=== PATIENT | male | born 1960 | race Caucasian/White ===

== ENCOUNTER 2018-03-05 16:38 | Inpatient (IN) | payer MEDICARE ==
[~2018-03-05] VITALS: Ht 175.2 cm
--- NOTE | ~2018-03-05 | EKG ---
[place], [place] ELECTROCARDIOGRAM REPORT NAME: MARCO ALANIS UNIT #: [id number] ROOM: 416 DOCTOR: ATIF DRAFT REPORT BIRTHDATE: [birth year] 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
--- NOTE | ~2018-03-05 | PR ---
[place], [place] PROGRESS NOTE NAME: MARCO ALANIS UNIT #: [id number] ROOM: 410 DOCTOR: SHERLYN REY MDKRISHNA BIRTHDATE: [birth year] DOS: 03/10/2018 SUBJECTIVE: The patient independently seen and examined, vpue-fi-fera encounter, history was confirmed. Physical examination performed. Labs reviewed. Labs reviewed. Assessment and management personally completed. Note done by the medical appliance maker approved. Bronchoscopy done yesterday with significant resolution improvement in symptoms of wheezing, coughing, and shortness of breath has been noted. Denies symptoms of chest pain or hemoptysis. The patient has been noted sitting on the chair this morning, was expecting possible home discharge because improvement in respiratory symptoms. OBJECTIVE: VITAL SIGNS: Normal temperature, respiratory rate 22, heart rate 102, blood pressure 130/74, pulse ox saturation on 2 liters nasal cannula 96% saturation. HEENT: Head was atraumatic. Eyes nonicterus. NECK: Supple. CARDIOVASCULAR: S1, S2 audible. LUNGS: Without any crackles. Occasional wheezing. ABDOMEN: Soft and nontender. EXTREMITIES: Without any acute edema. LABORATORY DATA: Culture of the bronchial washing shows heavy growth of yeast as the preliminary results. Final culture results pending. Gram stain, many white blood cells, few epithelial cells, few budding yeast, rare gram-positive cocci in pairs and gram-positive bacilli. IMPRESSION: 1. The patient with acute exacerbation of chronic obstructive pulmonary disease, ebfmu-kc-[id number] hypercapnic hypoxic respiratory failure. 2. Pulmonary nodules with suspected pulmonary infection and pneumonia. PLAN OF TREATMENT: The patient could be discharged home on oral Ceftin 500 mg p.o. b.i.d. Culture will be monitored. Tapering dose of prednisone. Abstinence tobacco recommended. Continue the use of home oxygen, which has been already done by the patient at 3 LPM of oxygen continuous use. Outpatient followup post-discharge recommended to have a repeat CT scan of chest done for assessment and documentation resolution of pulmonary nodules, otherwise additional assessment might be needed. Discharge planning was discussed with the patient's attending Alison Mcgee. [place], [place] PROGRESS NOTE NAME: MARCO ALANIS UNIT #: [id number] ROOM: 410 DOCTOR: KRISHNA CHO MD BIRTHDATE: [birth year] KRISHNA PLATA MD CM:PNTRANS [id number] KRISHNA REY MD 03/19/18 0917 interface
--- NOTE | ~2018-03-05 | EKG ---
[place], [place] ELECTROCARDIOGRAM REPORT NAME: MARCO ALANIS UNIT #: [id number] ROOM: 410 DOCTOR: ATIF DRAFT REPORT BIRTHDATE: [birth year] 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
--- NOTE | ~2018-03-05 | PROC NOTE ---
[place], [place] PROCEDURE NOTE NAME: MARCO ALANIS [facility] #: [id number] UNIT #: [id number] ROOM: 410 DOCTOR: SHERLYN REY MD,KRISHNA BIRTHDATE: [birth year] DOS: 03/09/2018 BRONCHOSCOPY NOTE PREOPERATIVE DIAGNOSES: The assessment of current nonproductive cough, pulmonary nodules. POSTOPERATIVE DIAGNOSES: Removal of multiple plugs and mucus in bronchial tree bilaterally. FINDINGS: Acute tracheobronchitis. Evidence of irregularity of mucosa was noted. Questionable lesion in the left lower lobe bronchus at the beginning of the left lingular opening and left upper lobe opening. The biopsies were done. BAL specimen in addition was also obtained for the patient from the left upper lobe. COMPLICATIONS: None. PROCEDURE DESCRIPTION: Informed consent obtained from the patient. The patient brought to the OR and placed in supine position. Conscious sedation administered by the Anesthesia Department. After achieving proper sedation, airway introduced into the mouth. Bronchoscope advanced to the airway into laryngeal area. Epiglottis were seen. Vocal were noted yellowish in color moving with symmetrical movements. Bronchoscope advanced to the vocal cord into tracheal lumen. The tracheal lumen noted with copious amount of thick purulent secretion, which was greenish in color, suctioned out at pranay level. Similar secretion present in endobronchial tree bilaterally. Moderate amount to remove with the help of normal saline wash without any difficulty. The patient noted irregular mucosa and questionable lesion in the endobronchial tree in the left main stem bronchus. The bronchial biopsies were taken. In addition, BAL specimen was obtained from the left upper lobe subsegment as well. Procedure was tolerated by the patient on complications. There was no significant bleeding noted. Postoperative findings were discussed with patient's spouse and other family members. KRISHNA PLATA MD CM:PROCNOTE:PROCEDURE NOTE 1143 [id number] KRISHNA REY MD
--- NOTE | ~2018-03-05 | PR ---
[place], [place] PROGRESS NOTE NAME: MARCO ALANIS [facility] #: [id number] UNIT #: [id number] ROOM: 410 DOCTOR: TESSA HALL DO BIRTHDATE: [birth year] DOS: 03/10/2018 SUBJECTIVE: The patient was seen and evaluated today. He had bronchoscopy performed yesterday. He states that his breathing is much improved since yesterday. He has a mild cough. He denies any lightheadedness, headaches, diplopia, hemoptysis, hematemesis or hematochezia. He states that he feels ready to go home, so that he can rest. OBJECTIVE: VITAL SIGNS: Temperature 98.5, heart rate 92, respirations 22, blood pressure 140/66, pulse ox 96% on 2-3 liters by nasal cannula. HEENT: Head is atraumatic. Eyes nonicteric. NECK: Supple. CARDIOVASCULAR: S1, S2 audible. LUNGS: Mildly decreased breath sounds with expiratory wheezing. ABDOMEN: Soft, nontender, nondistended. Bowel sounds present. EXTREMITIES: No edema. SKIN: Visible skin, no lesions or rashes. CENTRAL NERVOUS SYSTEM: Cranial nerves 2-12 grossly intact. MUSCULOSKELETAL: No acute deformities. LABORATORY DATA: CBC today shows white blood cells 8.0, hemoglobin 13.8, hematocrit 43.2, platelet count 399,000. CMP today, sodium 138, potassium 4.0, chloride 94, CO2 of 39, BUN 18, creatinine 0.96, glucose 252. AST 25, ALT 94, alkaline phosphatase 77. Albumin 3.1. Bronchial washings showed neutrophil predominant infiltrate. Gram stain of bronchial washing shows many white blood cells, few epithelial cells, few budding yeast, rare gram-positive cocci in pairs, and rare gram-positive bacilli. Results of culture from the bronchial washings is growing heavy yeast. Otherwise, normal sulaiman. Sputum Gram stain shows many white blood cells, few gram-positive cocci in pairs and few gram-positive bacilli. Culture of the sputum is normal sulaiman also with yeast. Blood cultures are negative. ASSESSMENT: 1. Acute exacerbation of chronic obstructive pulmonary disease. 2. Acute on chronic hypercapnic hypoxic respiratory failure. 3. Tracheobronchitis. PLAN OF TREATMENT: The patient will be discharged from a respiratory standpoint on Ceftin 500 b.i.d., continue to refrain from smoking. He may follow up as an outpatient as needed. Tessa Hall DO [place], [place] PROGRESS NOTE NAME: MARCO ALANIS [place] UNIT #: [id number] ROOM: 410 DOCTOR: TESSA HALL DO BIRTHDATE: [birth year] KRISHNA PLATA MD CM:PNARUN [id number] TESSA HALL DO 03/11/18 0412 interface
--- NOTE | ~2018-03-05 | PR ---
[place], [place] PROGRESS NOTE NAME: MARCO ALANIS UNIT #: [id number] ROOM: 416 DOCTOR: KRISHNA CHO MD BIRTHDATE: [birth year] DOS: 03/07/2018 PULMONARY PROGRESS NOTE SUBJECTIVE: The patient was noted sitting on the chair this morning of assessment. The cough has been noted small amount of sputum expectoration, shortness of breath and wheezing were noted, partially decreased. Denies symptoms of chest pain or hemoptysis. OBJECTIVE: VITAL SIGNS: Normal temperature, respiratory rate 20, heart rate 114-97, blood pressure 128/70-138/82. Pulse oxygen saturation on 3 liters nasal cannula 100%, BiPAP 40%, 99% saturation of oxygen recorded. HEENT: Head was atraumatic. Eyes nonicterus. NECK: Supple. CARDIOVASCULAR: S1, S2 is audible. LUNGS: Noted moderate decreased breaths in the lungs bilaterally with expiratory wheezing. No crackles. ABDOMEN: Soft, nontender. EXTREMITIES: No acute edema. LABORATORY DATA: Culture of the sputum from noted normal sulaiman, final culture results were pending. Blood culture from the both sets were noted negative for any bacterial growth. BMP today, glucose 306 and BUN 28. IMPRESSION: 1. The patient who has been currently noted with an ongoing acute on chronic hypoxic and hypercapnic respiratory failure. 2. The patient with acute tracheobronchitis. 3. Acute exacerbation of chronic obstructive pulmonary disease. 4. Bilateral pulmonary nodules, suspected for infection and other etiologies. PLAN OF TREATMENT: Continuation of current plan of management, oxygen supplementation, bronchodilators and the BiPAP use. The dose of Solu-Medrol will be decreased to 40 mg rather every 8 hours since the patient's respiratory symptoms have been decreasing. Bronchoscopy planned to be done on Friday. [place], [place] PROGRESS NOTE NAME: MARCO ALANIS UNIT #: [id number] ROOM: 416 DOCTOR: KRISHNA CHO MD BIRTHDATE: [birth year] KRISHNA PLATA MD CM:PNTRANS [phone] [id number] KRISHNA REY MD 03/07/185 interface
--- NOTE | ~2018-03-05 | PR ---
[place], [place] PROGRESS NOTE NAME: MARCO ALANIS UNIT #: [id number] ROOM: 416 DOCTOR: KRISHNA CHO MD BIRTHDATE: [birth year] DOS: 03/08/2018 SUBJECTIVE: The patient was noted comfortable at this time, resting in the bed. Has not been noted any acute new respiratory complaints at this time. Reported partial reduction in the respiratory symptom, coughing, shortness breath and wheezing in the last 24 hours. OBJECTIVE: VITAL SIGNS: This morning, normal temperature, respiratory rate 22, heart rate of 107, blood pressure 136/94. Pulse oxygen saturation on 4 liters nasal cannula 100% saturation. HEENT: Examination shows head was atraumatic. Eyes nonicterus. NECK: Supple. CARDIOVASCULAR: S1, S2 audible. LUNGS: Noted without any wheezing or crackles at the present time. Breaths are noted generally diminished bilaterally. ABDOMEN: Soft, nontender. Bowel sounds are present. EXTREMITIES: Without any acute edema. LABORATORY DATA: BMP today, BUN 25, creatinine was normal. CO2 of 33. Culture of the sputum noted moderate growth of yeast. IMPRESSION: The patient was currently noted with: 1. Acute on chronic hypercapnic and hypoxic respiratory failure, responding to treatment. 2. Acute bronchitis. 3. Pulmonary nodules. 4. Exacerbation of chronic obstructive pulmonary disease. PLAN OF MANAGEMENT: Continuation of the current plan of management with bronchodilators and oxygen supplement. Decrease the Solu-Medrol dose to 40 mg b.i.d. dosing. Proceed with bronchoscopy that was planned to be done tomorrow morning. [place], [place] PROGRESS NOTE NAME: MARCO ALANIS UNIT #: [id number] ROOM: 416 DOCTOR: KRISHNA CHO MD BIRTHDATE: [birth year] KRISHNA PLATA MD CM:PNTRANS [id number] KRISHNA REY MD 03/08/18 1628 interface
--- NOTE | ~2018-03-05 | PR ---
[place], [place] PROGRESS NOTE [id number] UNIT #: [id number] ROOM: 410 DOCTOR: KRISHNA CHO MD BIRTHDATE: [birth year] DOS: 03/09/2018 PULMONARY PROGRESS NOTE SUBJECTIVE: The patient was noted planned for bronchoscopy. The cough has been noted intermittently with minimal sputum expectoration. Denies symptoms of chest pain or hemoptysis. Shortness of breath was still noted with exertion partial reduction was noted. The wheezing was gradually subsiding. Denies any nausea, vomiting, diarrhea, abdominal pain, dysuria or hematuria. Denies symptoms of headache or diplopia. No joint pain. Remaining systems were reviewed. They were noted all negative. OBJECTIVE: VITAL SIGNS: Shows a normal temperature, respiratory rate of 20-26. Heart rate of 109-95, monitor sinus tachycardia. Blood pressure 135/77 and 148/72. Pulse oxygen saturation recorded as 98% with the BiPAP and 4 liters nasal cannula 95% saturation. HEENT: Examination shows head was atraumatic. Eyes nonicterus. NECK: Supple. CARDIOVASCULAR: S1, S2 audible. LUNGS: The patient was noted with moderate decreased breath sounds, expiratory wheezing without any crackles. ABDOMEN: Soft, nontender. Bowel sounds present. EXTREMITIES: No new changes. VISIBLE SKIN: No lesions or rashes. CENTRAL NERVOUS SYSTEM: Cranial nerves 2-12 intact. MUSCULOSKELETAL: Without any acute deformities. LABORATORY DATA: The culture of the sputum spontaneous and noted no bacterial growth yesterday. The BMP was done this morning shows glucose 160, BUN and creatinine was normal. IMPRESSION: The patient with pulmonary nodular opacities in the lungs. The patient's preop bronchoscopy shows acute exacerbation of chronic obstructive pulmonary disease, jidgg-em-sksbfji hypercapnic hypoxic respiratory failure, and persistent symptoms of nonproductive cough. PLAN OF TREATMENT: Continue the current plan of management. The patient corticosteroids, bronchodilator therapy. Bronchodilators administration. After the bronchoscopy if any modification in treatment necessary will be done accordingly. Continue other supportive therapy, plan of management, care plan and therapy per usual care. [place], [place] PROGRESS NOTE [facility]: [id number] UNIT #: [id number] ROOM: 410 DOCTOR: KRISHNA CHO MD BIRTHDATE: [birth year] KRISHNA PLATA MD CM:FEMI [id number] 1530 KRISHNA REY MD 03/09/18 1528 interface
--- NOTE | ~2018-03-05 | CON ---
[place], [place] REPORT OF CONSULTATION NAME: MARCO ALANIS [facility] #: [id number] UNIT #: [id number] ROOM: 416 DOCTOR: SHERLYN REY MDKRISHNA BIRTHDATE: [birth year] DOS: 03/06/2018 PULMONARY CONSULTATION AND EVALUATION REASON FOR CONSULTATION: Assessment for respiratory failure as well as exacerbation of COPD. HISTORY OF PRESENT ILLNESS: The patient was independently seen and examined, rknv-rg-vwin encounter. History was confirmed from the patient personally. Medical records were reviewed. Assessment and management personally completed today's note and all the necessary orders were instituted. This is a 57-year-old male who has been known with past history of COPD, has been assessed and treated by me in 2016. The patient presented to hospital. The patient has been noticed with symptoms of getting increased shortness of breath ongoing for the past few days. The symptoms have been noted with gradual worsening. The symptoms was associated with cough with sputum expectoration intermittently, dark yellowish color. The patient denies symptoms of hemoptysis with that. He denies any symptoms of chest pain. ____ symptoms of wheezing. He has been noted with oxygen desaturation. ____ Emergency Room. The patient has been currently admitted to hospital and managed for the treatment for acute respiratory failure and exacerbation of COPD. REVIEW OF SYSTEMS: Already completed by the medical surgical tech. PAST MEDICAL HISTORY: 1. Known with history of COPD. 2. Chronic hypoxic respiratory failure, use of oxygen supplementation 2 liter nasal cannula. 3. Nicotine dependent. 4. Essential hypertension. 5. Osteoarthritis. 6. Type 2 diabetes mellitus. 7. Anxiety disorder and depression. PAST SURGICAL HISTORY: 1. Noted removal of cyst from the right chest wall that was benign. 2. Surgery for the toenail. 3. Fibrobronchoscopy in 2016 as a therapeutic bronchoscopy. SOCIAL HISTORY: The patient is , lives at home, has 2 children. Smoking noted since the early teens up to 2 packs of cigarettes per day. Currently decreased the tobacco use, smoking quarter pack of cigarettes per day. He has worked for 24 years in the [employer]. FAMILY HISTORY: The patient was noted for hypertension in parents. CURRENT MEDICATIONS: Administered for this hospitalization, use of Lovenox for DVT prophylaxis, Solu-Medrol 60 mg q.8 hours, DuoNeb q.4 hours, IV Rocephin, Zithromax, and other p.r.n. medications. [place], [place] REPORT OF CONSULTATION [id number] UNIT #: [id number] ROOM: 416 DOCTOR: SHERLYN REY MD,KRISHNA BIRTHDATE: [birth year] DRUG ALLERGIES: Noted with no known drug allergies. PHYSICAL EXAMINATION: GENERAL: This is a 57-year-old white male, appeared to be significantly malnourished, cachectic for his age. Height of 5 feet 9 inches, weight 164 pounds. VITAL SIGNS: Normal temperature, respiratory rate 22-24, heart rate of 117-129, sinus tachycardia, blood pressure 131/67-98/64. Pulse oxygen saturation noted as 99% saturation. HEENT: Examination shows head was atraumatic. Eyes, nonicterus. NECK: Supple. CARDIOVASCULAR: S1, S2 audible. LUNGS: Noted with diffuse reduction in breath sounds with expiratory wheezing in the lungs, which are noted [id number] at the present time. ABDOMEN: Flat, soft, nontender. EXTREMITIES: Without any acute edema. Loss of muscle mass. There was no cyanosis. VISIBLE SKIN: No lesions or rashes. CENTRAL NERVOUS SYSTEM: Nonfocal. MUSCULOSKELETAL: No deformities. LABORATORY DATA: Lactic acid 1.8 yesterday on admission. CMP, glucose 171, BUN and creatinine was normal, and remaining electrolytes grossly normal. CBC yesterday on admission, normal hemoglobin and hematocrit, MCV of 100.9. Arterial blood gas, pH of 7.25, pCO2 of 59, pO2 of 129. The troponin cycled yesterday noted normal. D-dimer 2.97 that was a noted mildly elevated at midnight. The PT and PTT as normal. CBC repeated this morning essentially remains as normal. Sputum for Gram-stain culture, many white blood cell, few gram-positive cocci in pairs, and few gram-positive bacilli. The chest x-ray showed changes of COPD and hyperinflation were personal review. CTA of the chest was also reviewed for this hospitalization was noted without any evidence of significant lymphadenopathy. Centrilobular changes are noted in the upper portion of the lung consistent with history of tobacco use. It shows variable, which is cluster of the nodule was noted in the upper lung mostly in the upper two-thirds. The index nodule noted right upper lobe at 7 mm in size. The nodule appeared to be somewhat in the peripheral distribution. IMPRESSION: 1. The patient who has been currently admitted to the hospital for recurrent progressive acute respiratory symptoms noted with chronic hypercapnic and hypoxic respiratory failure. 2. Acute severe exacerbation of chronic obstructive pulmonary disease as well. 3. Finding of protein-calorie malnutrition. 4. Current pulmonary nodule, differential diagnosis of chronic hypersensitivity pneumonitis, sarcoidosis, malignancy, or chronic infection such as Mycobacterium avium complex, infection would be considered differential diagnosis. PLAN OF MANAGEMENT: The patient will be continued on current dose of corticosteroids. Reduction in the dose will be started based on the progression [place], [place] REPORT OF CONSULTATION NAME: MARCO ALANIS UNIT #: [id number] ROOM: [facility] DOCTOR: SHERLYN REY MD,KRISHNA BIRTHDATE: [birth year] of his illness. Additional treatment changes will be ordered based on the progression. The sputum for Gram-stain culture was already sent. Monitor culture results. Bronchoscopy done for the reason of getting more accurate culture identification from the lung, especially for atypical mycobacterial infection and other etiologies. Use of the BiPAP will be considered with intermittent ____ with current setting to be continued 26/05, which were noted effective. Other arterial blood gas will be obtained to assess improvement in the ventilatory status. Usual care, other supportive therapy, plan of management and care plan. Nicotine replacement patches to overcome nicotine withdrawal. Other supportive therapy, plan, and management changes to be continued as well. Prealbumin level was ordered. Thanks for allowing me to participate in the care of this patient. KRISHNA PLATA MD CM:CONSTR:REPORT OF CONSULTATION 1326 03/06/18 2134 interface
--- NOTE | ~2018-03-05 | CON ---
[place], [place] REPORT OF CONSULTATION NAME: MARCO ALANIS [facility] #: [id number] UNIT #: [id number] ROOM: 416 DOCTOR: TESSA HALL DO BIRTHDATE: [birth year] DOS: 03/06/2018 REQUESTING PHYSICIAN: Hospitalist Service. REASON FOR CONSULTATION: COPD exacerbation and acute on chronic respiratory failure. HISTORY OF PRESENT ILLNESS: The patient presented to [facility] with complaints of increasing shortness of breath. He notes worsening of his symptoms over the past 2-3 days. He does have a productive cough with sputum that is greenish yellow. He also had fevers, chills and sweats at home. He does have chest tightness due to the cough. He has been wearing BiPAP overnight. He states that the tightness in his chest is better. He also states that he is less short of breath today. He states that he does not smoke much anymore. He admits that the most he has been smoking is 5 cigarettes per day. He is on 2 liters of oxygen at home. He did not increase this before coming to the hospital. Upon arrival to the Emergency Room, he was satting 85% on 3 liters. He denies any symptoms of lightheadedness, current fevers or chills, chest pain, abdominal pain, nausea, vomiting, diarrhea, hemoptysis, hematemesis or hematochezia. REVIEW OF SYSTEMS: CONSTITUTIONAL: Fatigue, fevers and chills. EYES: Denies burning, redness or tenderness. EARS, NOSE, THROAT: Admits to sore throat. Denies hoarseness, otalgia, postnasal drainage or epistaxis. CARDIOVASCULAR: Denies chest pain, edema or pain in the lower extremities. RESPIRATORY: Admits to shortness of breath and cough with sputum production. GASTROINTESTINAL: Denies dysphagia, nausea, vomiting, diarrhea, abdominal pain, hematemesis, melena or hematochezia. GENITOURINARY: No dysuria, no hematuria. MUSCULOSKELETAL: Denies any acute pain in the joints. SKIN: Denies any lesions or rashes. CENTRAL NERVOUS SYSTEM: Denies dizziness, headache, double vision, or syncopal episodes. PAST MEDICAL HISTORY: COPD, diabetes type 2, emphysema, hypercholesterolemia, hypertension, vitamin B12 deficiency, neuropathy, tobacco abuse, home oxygen dependent. PAST SURGICAL HISTORY: Bronchoscopy. SOCIAL HISTORY: The patient currently smokes maximum of 5 cigarettes per day. He does not use alcohol or illicit drugs. He is in the distant past. He is currently single with a girlfriend. He has 2 children. FAMILY HISTORY: His father is due to emphysema and COPD. His mother is also due to cancer. MEDICATIONS: He is currently receiving Solu-Medrol 60 mg q.8 hours, Rocephin, [place], [place] REPORT OF CONSULTATION [id number] #: [id number] ROOM: [facility] DOCTOR: TESSA HALL DO BIRTHDATE: [birth year] azithromycin, DuoNeb breathing treatments q.4 hours, Mucinex b.i.d. and other p.r.n. medications. He is prescribed Anoro, Lipitor, diltiazem, Neurontin, glipizide, lisinopril and metformin. DRUG ALLERGIES: He has no known drug allergies. PHYSICAL EXAMINATION: VITAL SIGNS: On admission, temperature 97.6, heart rate 120, respirations 22, blood pressure 136/89, 85% on 3 liters nasal cannula. Vitals this morning, temperature 97.6, heart rate 114, respirations 24, blood pressure 98/64, pulse ox 100% on 40% BiPAP. GENERAL: Breathing easily on BiPAP. Uncomfortable with the mask on. He is 5 feet 8.9 inches. No weight has been recorded HEENT: Head is atraumatic. Eyes nonicteric. NECK: Supple. CARDIOVASULAR: S1, S2 audible. LUNGS: Diffuse wheezing bilaterally. Diffuse crackles also noted. ABDOMEN: Soft, nontender, nondistended with bowel sounds present. CENTRAL NERVOUS SYSTEM: Cranial nerves 2 through 12 grossly intact. No gross focal deficit. MUSCULOSKELETAL: No acute deformities. VISIBLE SKIN: No lesions or rashes noted. LABORATORY DATA: CBC on admission 03/05/2018 shows white blood cells 9.0, hemoglobin 15, hematocrit 46.6, platelet count of 343,000. CBC today, white blood cells 5.3, hemoglobin 13.4, hematocrit 42.2, platelet count 302,000. CMP on admission 03/05/2018 shows sodium 134, potassium 4.7, chloride 96, CO2 of 25, BUN 15, creatinine 1.19. LFTs were normal. Albumin 3.6. Troponins were cycled and were negative. CMP today shows sodium 132, potassium 5.1, chloride 97, CO2 of 28, BUN 23, creatinine 1.13 and glucose 247. Vitamin D low at 7.1. Blood gas from admission, pH 7.255, pCO2 of 59, pO2 of 129, bicarbonate 25.5. CTA of the chest shows multifocal diffuse bilateral patchy airspace disease as well as multiple pulmonary nodules. The largest of these nodules is located in the right upper lobe and measures 7 mm. IMPRESSION: 1. Severe sepsis. 2. Acute on chronic respiratory failure with hypoxia and hypercapnia. 3. Pneumonitis, possible pneumonia. 4. Chronic obstructive pulmonary disease exacerbation. 5. Tachycardia relating to the underlying infection. 6. Tachypnea. 7. Respiratory acidosis. 8. Tobacco abuse. 9. Diabetes mellitus type 2 with hyperglycemia. 10. Neuropathy. 11. Emphysema. 12. Hypercholesterolemia. 13. Hypertension. 14. Hyponatremia. [place], [place] REPORT OF CONSULTATION NAME: MARCO ALANIS UNIT #: [id number] ROOM: [facility] DOCTOR: TESSA HALL DO BIRTHDATE: [birth year] 15. Home oxygen dependent. 16. Chronic respiratory failure. PLAN AND MANAGEMENT: Agree with current doses of steroids, bronchodilators and antibiotics. Due to the patchy airspace disease, the patient will be taken for a bronchoscopy on Friday to obtain cultures. Continue oxygen supplementation as needed. He may take breaks from BiPAP to eat. Changes in management will be based upon disease progression and results of cultures from bronchoalveolar lavage. Tessa Hall DO KRISHNA PLATA MD CM:CONSTR:REPORT OF CONSULTATION 1154 03/06/18 1239 interface
[~2018-03-05 16:38] MED LIST: ASPIR-LOW81 MG PO; CARDIZEM LA120 MG PO; CENTRUM1 TAB PO; CIALIS5 MG PO; EC NAPROSYN500 MG PO; GABAPENTIN300 M1 PO; GLIPIZIDE XL5 M1 PO; LEVAQUIN750 M1 PO; LIPITOR40 MG PO; LOPID600 M1 PO; LUNESTA2 MG PO; MUCINEX ER600 MG PO; Metformin Hydr500 MG PO; NASONEX0.05 MG/AC NS; NEURONTIN300 MG PO; PREDNISONE10 MG PO; PREDNISONE20 MG PO; PRINIVIL5 M1 PO; PRINIVIL5 MG PO; PROVENTIL0.09 MG/A1 IH; ROBITUSSIN AC 110 ML PO; SPIRIVA18 MCG PO; SYMBICORT1 AE1 IH; TRAD5TAB1 PO; TRAMADOL HCL50 MG PO; TRICOR145 MG PO; VICODIN 5/500 505 MG PO; VITAMIN B121000 MC1 PO; VITAMIN C1000 M5 PO; XANAX0.25 MG PO
[2018-03-05 17:15] LABS: HEMATOCRIT 46.6 % (42.0-52.0); MEAN CELL VOLUME 100.9 fl (80.0-94.0); MEAN CORPUSCULAR HGB 32.5 pg (27.0-31.0); MEAN CORPUSCULAR HGB CONC 32.2 g/dl (33.0-37.0); PLATELET COUNT AUTOMATED 343 10*3/uL (130-400); RED BLOOD COUNT 4.62 10*6/uL (4.50-5.90); RED CELL DISTRI WIDTH 12.9 % (0-14.5)
[2018-03-05 17:21] VITALS: BP 136/89
[2018-03-05 17:31] LABS: ALBUMIN 3.6 gm/dl (3.1-4.5); ALKALINE PHOSPHATASE 97 U/L (45-117); BUN 15 mg/dl (7-24); CHLORIDE 96 mmol/L (98-107); CREATININE 1.19 mg/dL (0.70-1.30); POTASSIUM 4.7 mmol/L (3.5-5.1); SGOT/AST 20 IU/L (3-35); SGPT/ALT 29 U/L (12-78); SODIUM 134 mmol/L (136-145); TOTAL PROTEIN 8.3 gm/dL (6.4-8.2)
[2018-03-05 17:33] LABS: TROPONIN I < 0.015 ng/ml (<0.045)
[2018-03-05 17:43] LABS: BASOPHILS 1 % (0-1); POLYCHROMASIA SLIGHT; TOTAL CELLS COUNTED 100 #CELLS
[2018-03-05 17:45] LABS: PLATELET SUFFICIENCY NORMAL (NORMAL)
[2018-03-05 17:48] LABS: ABG BASE EXCESS -2.7 mmol/L (-2.0-2.0); ABG HCO3 25.5 mmol/l (22-26); ABG O2 SATURATION 98.5 % (95-97); ARTERIAL BLOOD GAS PH 7.255 (7.35-7.45)
[2018-03-05 17:53] VITALS: BP 100/66
[2018-03-05 18:16] VITALS: BP 93/63
[2018-03-05 19:36] VITALS: BP 98/60
[2018-03-05 20:26] VITALS: BP 118/71
[2018-03-05 20:38] LABS: TROPONIN I < 0.015 ng/ml (<0.045)
[2018-03-05 21:30] VITALS: BP 131/67
[2018-03-06] VITALS: BP 105/80
[2018-03-06 06:21] LABS: ACT PARTIAL THROMBO TIME 31.6 SECONDS (20.8-31.5)
[2018-03-06 06:22] LABS: HEMATOCRIT 42.4 % (42.0-52.0); HEMOGLOBIN 13.4 g/dl (14.0-18.0); MEAN CELL VOLUME 102.2 fl (80.0-94.0); MEAN CORPUSCULAR HGB 32.3 pg (27.0-31.0); MEAN CORPUSCULAR HGB CONC 31.6 g/dl (33.0-37.0); MEAN PLATELET VOLUME 10.3 fl (9.6-12.3); PLATELET COUNT AUTOMATED 302 10*3/uL (130-400); RED BLOOD COUNT 4.15 10*6/uL (4.50-5.90); RED CELL DISTRI WIDTH 12.9 % (0-14.5); WHITE BLOOD COUNT 5.3 10*3/uL (4.8-10.8)
[2018-03-06 06:43] LABS: ALKALINE PHOSPHATASE 93 U/L (45-117); BUN 23 mg/dl (7-24); CHLORIDE 97 mmol/L (98-107); CREATININE 1.13 mg/dL (0.70-1.30); PHOSPHOROUS 3.2 mg/dL (2.5-4.9); POTASSIUM 5.1 mmol/L (3.5-5.1); SGOT/AST 31 IU/L (3-35); SGPT/ALT 37 U/L (12-78); SODIUM 132 mmol/L (136-145); TOTAL PROTEIN 7.1 gm/dL (6.4-8.2)
[2018-03-06 06:49] LABS: FREE T4 1.56 ng/dl (0.76-1.46); THYROID STIM HORMONE (HS) 0.185 uIU/ml (0.358-4.75)
[2018-03-06 07:05] LABS: TOTAL CELLS COUNTED 100 #CELLS
[2018-03-06 07:06] LABS: BURR CELLS FEW; PLATELET SUFFICIENCY NORMAL (NORMAL)
[2018-03-06 08:00] VITALS: BP 98/64
[2018-03-06 08:06] LABS: VITAMIN D, 25-HYDROXY 7.1 ng/mL (30-100)
[2018-03-06] MEDS ORDERED: CARTIA XT180 MG PO (10:14)
[2018-03-06] MEDS ORDERED: ALBUTEROL2.5 MG/0.5 INH (10:15)
[2018-03-06] MEDS ORDERED: ANORO ELLIPTA1 EACH INH (10:16)
[2018-03-06 12:00] VITALS: BP 124/74
[2018-03-06] MEDS ORDERED: SYMB160 INH (13:35)
[2018-03-06] MEDS ORDERED: PROVENTIL HFA6.7 GM INH (13:37)
[2018-03-06 13:51] LABS: ABG BASE EXCESS -0.7 mmol/L (-2.0-2.0); ABG HCO3 26.6 mmol/l (22-26); ABG O2 SATURATION 94.7 % (95-97); ARTERIAL BLOOD GAS PCO2 56.3 mmHg (35-45); ARTERIAL BLOOD GAS PH 7.293 (7.35-7.45); ARTERIAL BLOOD GAS PO2 72.6 mmHg (80-90)
[2018-03-06 16:00] VITALS: BP 131/72
[2018-03-06 20:00] VITALS: BP 138/82
[2018-03-07] VITALS: BP 128/70
[2018-03-07 05:53] LABS: BASO % 0.2 % (0.0-1.0); HEMATOCRIT 41.2 % (42.0-52.0); LYMPH # 0.4 10*3/uL (1.3-4.4); MEAN CELL VOLUME 102.5 fl (80.0-94.0); MEAN CORPUSCULAR HGB 32.3 pg (27.0-31.0); MEAN CORPUSCULAR HGB CONC 31.6 g/dl (33.0-37.0); MEAN PLATELET VOLUME 9.9 fl (9.6-12.3); MONO # 0.5 10*3/uL (0.1-1.0); MONO % 10.3 % (3.0-9.0); NEUT # 3.9 10*3/uL (2.3-7.9); NEUT % 81.1 % (47.0-73.0); PLATELET COUNT AUTOMATED 345 10*3/uL (130-400); RED BLOOD COUNT 4.02 10*6/uL (4.50-5.90); WHITE BLOOD COUNT 4.8 10*3/uL (4.8-10.8)
[2018-03-07 05:58] LABS: BUN 28 mg/dl (7-24); CHLORIDE 104 mmol/L (98-107); CREATININE 1.17 mg/dL (0.70-1.30); SODIUM 139 mmol/L (136-145)
[2018-03-07 06:02] LABS: PREALBUMIN 11 mg/dl (20-40)
[2018-03-07 12:00] VITALS: BP 131/80
[2018-03-07 16:00] VITALS: BP 130/62
[2018-03-07 20:00] VITALS: BP 127/63
[2018-03-08] VITALS: BP 136/94
[2018-03-08 07:37] LABS: CHLORIDE 103 mmol/L (98-107); POTASSIUM 4.1 mmol/L (3.5-5.1); SODIUM 141 mmol/L (136-145)
[2018-03-08 07:49] LABS: BUN 25 mg/dl (7-24)
[2018-03-08 12:00] VITALS: BP 135/77
[2018-03-08 16:00] VITALS: BP 134/60
[2018-03-08 20:00] VITALS: BP 132/69
[2018-03-09] VITALS (11 sets, daily range): BP systolic 122–158; BP diastolic 60–92
[2018-03-09 06:54] LABS: BUN 24 mg/dl (7-24); CHLORIDE 101 mmol/L (98-107); CREATININE 0.92 mg/dL (0.70-1.30); POTASSIUM 4.2 mmol/L (3.5-5.1); SODIUM 141 mmol/L (136-145)
[2018-03-09 10:33] LABS: BF LYMPHOCYTES 2 %; BF MACROPHAGES 3 %; BF NEUTROPHILS 95 %
[2018-03-10 00:18] VITALS: BP 138/74
[2018-03-10 06:18] LABS: HEMATOCRIT 43.2 % (42.0-52.0); HEMOGLOBIN 13.8 g/dl (14.0-18.0); MEAN CELL VOLUME 100.2 fl (80.0-94.0); MEAN CORPUSCULAR HGB CONC 31.9 g/dl (33.0-37.0); MEAN PLATELET VOLUME 9.7 fl (9.6-12.3); PLATELET COUNT AUTOMATED 399 10*3/uL (130-400); RED BLOOD COUNT 4.31 10*6/uL (4.50-5.90); RED CELL DISTRI WIDTH 12.3 % (0-14.5)
[2018-03-10 06:47] LABS: TOTAL CELLS COUNTED 100 #CELLS
[2018-03-10 06:48] LABS: PLATELET SUFFICIENCY NORMAL (NORMAL)
[2018-03-10 06:55] LABS: ALBUMIN 3.1 gm/dl (3.1-4.5); ALKALINE PHOSPHATASE 77 U/L (45-117); BUN 18 mg/dl (7-24); CHLORIDE 94 mmol/L (98-107); CREATININE 0.96 mg/dL (0.70-1.30); SGOT/AST 25 IU/L (3-35); SGPT/ALT 94 U/L (12-78); SODIUM 138 mmol/L (136-145); TOTAL PROTEIN 6.5 gm/dL (6.4-8.2)
[2018-03-10 07:50] VITALS: BP 140/66
[2018-03-10] MEDS ORDERED: AMINOPHYLLIN200 MG PO (09:34)
[2018-03-10 12:00] VITALS: BP 149/80
[2018-03-10] MEDS ORDERED: CEFUROXIME AXE250 MG PO (12:15)
[2018-03-10] MEDS ORDERED: DILTIAZEM CD240 MG PO (12:15)
[2018-03-10] MEDS ORDERED: MUCINEX ER600 MG PO (12:15)
[2018-03-10] MEDS ORDERED: VITAMIN D-32000 UNIT PO (12:17)
[2018-03-10] MEDS ORDERED: PREDNISONE10 MG PO (12:19)
[2018-03-10] MEDS ORDERED: LEVEMIR100 UNIT/1 SC (12:28)
[2018-03-10 15:07] LABS: ACID FAST SPEC PROCESSING Concentration (.)
== END 2018-03-10 13:35 | disposition home or self-care (01) | DRG 853 ==
LOC: ED 16:38 → 4E 18:17 → EDHOLD 18:17 → 4E 21:04
PROVIDERS: Internal Medicine; Internal Medicine Critical Care Medicine; Nurse Practitioner Family; Registered Nurse; Student in an Organized Health Care Education/Training Program
PROC: 5A09357 Assistance with Respiratory Ventilation, Less than 24 Consecutive Hours, Continuous Positive Airway Pressure (ICD-10-PCS; principal; 2018-03-05)
PROC: 5A09357 Assistance with Respiratory Ventilation, Less than 24 Consecutive Hours, Continuous Positive Airway Pressure (ICD-10-PCS; 2018-03-06)
PROC: 5A09357 Assistance with Respiratory Ventilation, Less than 24 Consecutive Hours, Continuous Positive Airway Pressure (ICD-10-PCS; 2018-03-07)
PROC: 0B9G8ZX Drainage of Left Upper Lung Lobe, Via Natural or Artificial Opening Endoscopic, Diagnostic (ICD-10-PCS; 2018-03-09)
PROC: 0BC48ZZ Extirpation of Matter from Right Upper Lobe Bronchus, Via Natural or Artificial Opening Endoscopic (ICD-10-PCS; 2018-03-09)
PROC: 0BC88ZZ Extirpation of Matter from Left Upper Lobe Bronchus, Via Natural or Artificial Opening Endoscopic (ICD-10-PCS; 2018-03-09)
PROC: 0BC78ZZ Extirpation of Matter from Left Main Bronchus, Via Natural or Artificial Opening Endoscopic (ICD-10-PCS; 2018-03-09)
PROC: 5A09357 Assistance with Respiratory Ventilation, Less than 24 Consecutive Hours, Continuous Positive Airway Pressure (ICD-10-PCS; 2018-03-09)
PROC: 0BC68ZZ Extirpation of Matter from Right Lower Lobe Bronchus, Via Natural or Artificial Opening Endoscopic (ICD-10-PCS; 2018-03-09)
PROC: 0BCB8ZZ Extirpation of Matter from Left Lower Lobe Bronchus, Via Natural or Artificial Opening Endoscopic (ICD-10-PCS; 2018-03-09)
PROC: 0BC38ZZ Extirpation of Matter from Right Main Bronchus, Via Natural or Artificial Opening Endoscopic (ICD-10-PCS; 2018-03-09)
PROC: 0BB78ZX Excision of Left Main Bronchus, Via Natural or Artificial Opening Endoscopic, Diagnostic (ICD-10-PCS; 2018-03-09)
PROC: 0BC18ZZ Extirpation of Matter from Trachea, Via Natural or Artificial Opening Endoscopic (ICD-10-PCS; 2018-03-09)
PROC: 0BC98ZZ Extirpation of Matter from Lingula Bronchus, Via Natural or Artificial Opening Endoscopic (ICD-10-PCS; 2018-03-09)
PROC: 0BC58ZZ Extirpation of Matter from Right Middle Lobe Bronchus, Via Natural or Artificial Opening Endoscopic (ICD-10-PCS; 2018-03-09)
DX: A41.9 Sepsis, unspecified organism (principal); J18.9 Pneumonia, unspecified organism; J96.21 Acute and chronic respiratory failure with hypoxia; E87.8 Other disorders of electrolyte and fluid balance, not elsewhere classified; E11.42 Type 2 diabetes mellitus with diabetic polyneuropathy; E46 Unspecified protein-calorie malnutrition; J96.22 Acute and chronic respiratory failure with hypercapnia; E87.1 Hypo-osmolality and hyponatremia; J44.0 Chronic obstructive pulmonary disease with (acute) lower respiratory infection; J43.9 Emphysema, unspecified; I48.91 Unspecified atrial fibrillation; F32.9 Major depressive disorder, single episode, unspecified; M19.90 Unspecified osteoarthritis, unspecified site; R65.20 Severe sepsis without septic shock; E78.00 Pure hypercholesterolemia, unspecified; F41.9 Anxiety disorder, unspecified; I10 Essential (primary) hypertension; E53.8 Deficiency of other specified B group vitamins; E11.65 Type 2 diabetes mellitus with hyperglycemia; D75.89 Other specified diseases of blood and blood-forming organs; J20.9 Acute bronchitis, unspecified; F17.200 Nicotine dependence, unspecified, uncomplicated; R91.8 Other nonspecific abnormal finding of lung field; Z79.82 Long term (current) use of aspirin; Z79.84 Long term (current) use of oral hypoglycemic drugs; Z99.81 Dependence on supplemental oxygen; Z83.6 Family history of other diseases of the respiratory system; Z87.01 Personal history of pneumonia (recurrent); Z82.49 Family history of ischemic heart disease and other diseases of the circulatory system; Z80.9 Family history of malignant neoplasm, unspecified; Z71.6 Tobacco abuse counseling

== ENCOUNTER → 2018-04-14 | Outpatient (CLI) | payer MEDICARE ==
[~2018-04-14] MED LIST changes: +ALBUTEROL2.5 MG/0.5 INH; +AMINOPHYLLIN200 MG PO; +ANORO ELLIPTA1 EACH INH; +CARTIA XT180 MG PO; +CEFUROXIME AXE250 MG PO; +DILTIAZEM CD240 MG PO; +LEVEMIR100 UNIT/1 SC; +PROVENTIL HFA6.7 GM INH; +SYMB160 INH; +VITAMIN D-32000 UNIT PO
== END | disposition home or self-care (01) ==
LOC: CT 09:14
DX: J43.9 Emphysema, unspecified (principal); I25.10 Atherosclerotic heart disease of native coronary artery without angina pectoris; R91.1 Solitary pulmonary nodule

== ENCOUNTER 2021-07-26 17:38 | Inpatient (IN) | payer MEDICARE, MEDICAID ==
[2021-07-26] VITALS (9 sets, daily range): BP systolic 102–146; BP diastolic 58–75
[~2021-07-26] VITALS: Ht 175.3 cm; Wt 59.2 kg
[2021-07-26 18:18] LABS: HEMATOCRIT 48.1 % (42.0-52.0); MEAN CELL VOLUME 103.4 fl (80.0-94.0); MEAN CORPUSCULAR HGB 31.6 pg (27.0-31.0); MEAN CORPUSCULAR HGB CONC 30.6 g/dl (33.0-37.0); MEAN PLATELET VOLUME 10.1 fl (9.6-12.3); PLATELET COUNT AUTOMATED 346 10*3/uL (130-400); RED BLOOD COUNT 4.65 10*6/uL (4.50-5.90); RED CELL DISTRI WIDTH 13.5 % (0-14.5); WHITE BLOOD COUNT 7.6 10*3/uL (4.8-10.8)
[2021-07-26 18:41] LABS: ALBUMIN 3.3 gm/dl (3.1-4.5); CREATININE 1.48 mg/dL (0.70-1.30); PLATELET SUFFICIENCY NORMAL (NORMAL); POTASSIUM 4.5 mmol/L (3.5-5.1); TOTAL CELLS COUNTED 100 #CELLS; TOTAL PROTEIN 8.4 gm/dL (6.4-8.2)
[2021-07-26 18:55] LABS: BILIRUBIN Negative (Negative); BLOOD Negative (Negative); CLARITY Clear (Clear); COLOR Yellow (Yellow); GLUCOSE 3+ (Negative); KETONE 1+ (Negative); LEUKO ESTERASE Negative (Negative); NITRITE Negative (Negative); SPECIFIC GRAVITY 1.025 (1.001-1.030)
[2021-07-26 19:06] LABS: BACTERIA 2+
[2021-07-26 19:29] LABS: ABG BASE EXCESS 1.5 mmol/L (-2.0-2.0); ARTERIAL BLOOD GAS PO2 95.7 (80-90)
[2021-07-26 19:35] LABS: ARTERIAL BLOOD GAS PH 7.194 (7.35-7.45)
[2021-07-26] MEDS ORDERED: DALI500T PO (19:59)
[2021-07-26] MEDS ORDERED: PROPRANOLOL HCL20 MG PO (20:02)
[2021-07-26] MEDS ORDERED: JARDIANCE10 MG PO (20:02)
[2021-07-26] MEDS ORDERED: INCRUSE ELLI62.5 MCG INH (20:04)
[2021-07-26] MEDS ORDERED: TRAD5TAB1 PO (20:05)
[2021-07-26] MEDS ORDERED: ROPINIROLE HYD0.5 MG PO (20:06)
[2021-07-26] MEDS ORDERED: FLONASE ALLERG9.9 ML NAS (20:08)
[2021-07-27] VITALS (61 sets, daily range): BP systolic 47–172; BP diastolic 22–94
[2021-07-27 05:51] LABS: BUN 54 mg/dl (7-24); CHLORIDE 111 mmol/L (98-107); CHOLESTEROL 162 mg/dL (<200); CREATININE 1.24 mg/dL (0.70-1.30); LDH 105 U/L (87-241); LDL CHOLESTEROL 89 mg/dL (9-159); POTASSIUM 4.9 mmol/L (3.5-5.1); SODIUM 148 mmol/L (136-145); TRIGLYCERIDES 101 mg/dl (<150)
[2021-07-27 06:04] LABS: HEMATOCRIT 48.5 % (42.0-52.0); MEAN CELL VOLUME 104.5 fl (80.0-94.0); MEAN CORPUSCULAR HGB 30.8 pg (27.0-31.0); MEAN CORPUSCULAR HGB CONC 29.5 g/dl (33.0-37.0); MEAN PLATELET VOLUME 10.6 fl (9.6-12.3); PLATELET COUNT AUTOMATED 332 10*3/uL (130-400); RED BLOOD COUNT 4.64 10*6/uL (4.50-5.90); RED CELL DISTRI WIDTH 13.7 % (0-14.5); WHITE BLOOD COUNT 9.7 10*3/uL (4.8-10.8)
[2021-07-27 07:02] LABS: TOTAL CELLS COUNTED 100 #CELLS
[2021-07-27 07:04] LABS: PLATELET SUFFICIENCY NORMAL (NORMAL)
[2021-07-27 08:21] LABS: ABG BASE EXCESS 6.9 mmol/L (-2.0-2.0); ARTERIAL BLOOD GAS PH 7.236 (7.35-7.45); ARTERIAL BLOOD GAS PO2 92.3 (80-90)
[2021-07-27 10:31] LABS: FREE T4 1.56 ng/dl (0.76-1.46)
[2021-07-27 10:36] LABS: THYROID STIM HORMONE (HS) 0.041 uIU/ml (0.358-4.75)
[2021-07-27 10:48] LABS: FERRITIN 590.2 ng/mL (22.0-322.0); VITAMIN D, 25-HYDROXY 28.7 ng/mL (30-100)
[2021-07-27 14:40] LABS: ABG BASE EXCESS 1.2 mmol/L (-2.0-2.0); ARTERIAL BLOOD GAS PH 7.288 (7.35-7.45); ARTERIAL BLOOD GAS PO2 108.6 (80-90)
[2021-07-28] VITALS (96 sets, daily range): BP systolic 80–162; BP diastolic 41–92
[2021-07-28 06:08] LABS: HEMATOCRIT 43.7 % (42.0-52.0); MEAN CELL VOLUME 105.6 fl (80.0-94.0); MEAN CORPUSCULAR HGB 31.4 pg (27.0-31.0); MEAN CORPUSCULAR HGB CONC 29.7 g/dl (33.0-37.0); MEAN PLATELET VOLUME 11.2 fl (9.6-12.3); PLATELET COUNT AUTOMATED 324 10*3/uL (130-400); RED BLOOD COUNT 4.14 10*6/uL (4.50-5.90); RED CELL DISTRI WIDTH 14.1 % (0-14.5); WHITE BLOOD COUNT 9.7 10*3/uL (4.8-10.8)
[2021-07-28 06:12] LABS: ALBUMIN 2.5 gm/dl (3.1-4.5); ALKALINE PHOSPHATASE 95 U/L (45-117); BUN 50 mg/dl (7-24); CHLORIDE 109 mmol/L (98-107); CREATININE 1.32 mg/dL (0.70-1.30); POTASSIUM 4.2 mmol/L (3.5-5.1); SGOT/AST 10 IU/L (3-35); SGPT/ALT 20 U/L (12-78); SODIUM 146 mmol/L (136-145); TOTAL PROTEIN 6.9 gm/dL (6.4-8.2)
[2021-07-28 08:36] LABS: PLATELET SUFFICIENCY NORMAL (NORMAL); TOTAL CELLS COUNTED 100 #CELLS
[2021-07-28 11:46] LABS: ABG BASE EXCESS 1.3 mmol/L (-2.0-2.0); ARTERIAL BLOOD GAS PH 7.282 (7.35-7.45); ARTERIAL BLOOD GAS PO2 77.4 (80-90)
[2021-07-29] VITALS (96 sets, daily range): BP systolic 77–131; BP diastolic 46–77
[2021-07-29 06:18] LABS: CHLORIDE 104 mmol/L (98-107); POTASSIUM 4.3 mmol/L (3.5-5.1); SODIUM 142 mmol/L (136-145)
[2021-07-29 06:26] LABS: HEMATOCRIT 41.6 % (42.0-52.0); MEAN CORPUSCULAR HGB 30.9 pg (27.0-31.0); MEAN PLATELET VOLUME 11.2 fl (9.6-12.3); NUCLEATED RED BLOOD CELL 0.2 % (0.0-0.0); PLATELET COUNT AUTOMATED 289 10*3/uL (130-400); RED BLOOD COUNT 4.04 10*6/uL (4.50-5.90); RED CELL DISTRI WIDTH 13.5 % (0-14.5); WHITE BLOOD COUNT 9.7 10*3/uL (4.8-10.8)
[2021-07-29 06:28] LABS: ALBUMIN 2.2 gm/dl (3.1-4.5); ALKALINE PHOSPHATASE 83 U/L (45-117); CREATININE 0.98 mg/dL (0.70-1.30); SGOT/AST 10 IU/L (3-35); SGPT/ALT 20 U/L (12-78); TOTAL PROTEIN 6.1 gm/dL (6.4-8.2)
[2021-07-29 06:33] LABS: BUN 31 mg/dl (7-24)
[2021-07-29 07:35] LABS: PLATELET SUFFICIENCY NORMAL (NORMAL); TOTAL CELLS COUNTED 100 #CELLS
[2021-07-30] VITALS (96 sets, daily range): BP systolic 78–129; BP diastolic 41–78
[2021-07-30 06:10] LABS: CHLORIDE 102 mmol/L (98-107); POTASSIUM 4.5 mmol/L (3.5-5.1); SODIUM 140 mmol/L (136-145)
[2021-07-30 06:23] LABS: BASO % 0.2 % (0.0-1.0); EOS % 0.1 % (1.0-4.0); HEMATOCRIT 40.8 % (42.0-52.0); LYMPH # 1.3 10*3/uL (1.3-4.4); LYMPH % 11.2 % (27.0-41.0); MEAN CELL VOLUME 100.7 fl (80.0-94.0); MEAN CORPUSCULAR HGB 30.9 pg (27.0-31.0); MEAN CORPUSCULAR HGB CONC 30.6 g/dl (33.0-37.0); MEAN PLATELET VOLUME 11.5 fl (9.6-12.3); MONO # 1.4 10*3/uL (0.1-1.0); MONO % 12.1 % (3.0-9.0); NEUT # 8.7 10*3/uL (2.3-7.9); NEUT % 75.2 % (47.0-73.0); NUCLEATED RED BLOOD CELL 0.2 % (0.0-0.0); PLATELET COUNT AUTOMATED 286 10*3/uL (130-400); RED BLOOD COUNT 4.05 10*6/uL (4.50-5.90); RED CELL DISTRI WIDTH 13.2 % (0-14.5); WHITE BLOOD COUNT 11.6 10*3/uL (4.8-10.8)
[2021-07-30 06:29] LABS: ALBUMIN 2.1 gm/dl (3.1-4.5); ALKALINE PHOSPHATASE 84 U/L (45-117); BUN 32 mg/dl (7-24); CREATININE 1.01 mg/dL (0.70-1.30); SGOT/AST 22 IU/L (3-35); SGPT/ALT 27 U/L (12-78); TOTAL PROTEIN 5.9 gm/dL (6.4-8.2)
[2021-07-30 12:38] LABS: ABG BASE EXCESS 3.1 mmol/L (-2.0-2.0); ARTERIAL BLOOD GAS PH 7.379 (7.35-7.45); ARTERIAL BLOOD GAS PO2 82.2 (80-90)
[2021-07-31] VITALS (96 sets, daily range): BP systolic 69–125; BP diastolic 47–82
[2021-07-31 06:15] LABS: CHLORIDE 102 mmol/L (98-107); CREATININE 0.85 mg/dL (0.70-1.30); POTASSIUM 3.9 mmol/L (3.5-5.1); SGOT/AST 39 IU/L (3-35); SGPT/ALT 41 U/L (12-78); SODIUM 140 mmol/L (136-145)
[2021-07-31 06:16] LABS: MEAN CORPUSCULAR HGB 30.9 pg (27.0-31.0); MEAN CORPUSCULAR HGB CONC 31.3 g/dl (33.0-37.0); MEAN PLATELET VOLUME 11.2 fl (9.6-12.3); PLATELET COUNT AUTOMATED 256 10*3/uL (130-400); RED BLOOD COUNT 4.04 10*6/uL (4.50-5.90); RED CELL DISTRI WIDTH 13.1 % (0-14.5); WHITE BLOOD COUNT 15.5 10*3/uL (4.8-10.8)
[2021-07-31 06:26] LABS: ALBUMIN 2.1 gm/dl (3.1-4.5); ALKALINE PHOSPHATASE 90 U/L (45-117); BUN 26 mg/dl (7-24); TOTAL PROTEIN 5.7 gm/dL (6.4-8.2)
[2021-07-31 07:29] LABS: ATYPICAL LYMPHS 1 % (0-0); PLATELET SUFFICIENCY NORMAL (NORMAL); POLYCHROMASIA SLIGHT; TOTAL CELLS COUNTED 100 #CELLS; TOXIC GRANULATION SLIGHT; VACUOLATION OF NEUTROPHILS SLIGHT
[2021-08-01] VITALS (94 sets, daily range): BP systolic 77–153; BP diastolic 47–76
[2021-08-01 05:06] LABS: IMMUNOGLOBULIN M, QNT 96 mg/dL (20-172); RHEUMATOID ARTHRITIS FACTOR 14.6 IU/mL (<14.0)
[2021-08-01 05:34] LABS: BUN 18 mg/dl (7-24); CHLORIDE 100 mmol/L (98-107); CREATININE 0.86 mg/dL (0.70-1.30); SODIUM 140 mmol/L (136-145)
[2021-08-01 06:24] LABS: HEMATOCRIT 38.6 % (42.0-52.0); MEAN CELL VOLUME 97.7 fl (80.0-94.0); MEAN CORPUSCULAR HGB 30.6 pg (27.0-31.0); MEAN CORPUSCULAR HGB CONC 31.3 g/dl (33.0-37.0); MEAN PLATELET VOLUME 11.4 fl (9.6-12.3); PLATELET COUNT AUTOMATED 239 10*3/uL (130-400); RED BLOOD COUNT 3.95 10*6/uL (4.50-5.90); WHITE BLOOD COUNT 16.2 10*3/uL (4.8-10.8)
[2021-08-01 07:10] LABS: PLATELET SUFFICIENCY NORMAL (NORMAL); TOTAL CELLS COUNTED 100 #CELLS; TOXIC GRANULATION SLIGHT
[2021-08-01 07:11] LABS: POLYCHROMASIA SLIGHT
[2021-08-01 13:07] LABS: ALDOLASE 14.5 U/L (3.3-10.3); ANGIOTENSIN-CONVERTING ENZYME 16 U/L (14-82)
[2021-08-01 14:08] LABS: ATYPICAL PANCA <1:20 titer (Neg:<1:20); CYTOPLASMIC (C-ANCA) <1:20 titer (Neg:<1:20)
[2021-08-01 14:08] LABS: ACID FAST SPEC PROCESSING Concentration (.); ACID FAST SPEC PROCESSING Tissue Grinding (.)
[2021-08-01 15:07] LABS: IGG SUBCLASS 1 236 mg/dL (248-810); IGG SUBCLASS 2 295 mg/dL (130-555); IGG SUBCLASS 3 91 mg/dL (15-102); IGG SUBCLASS 4 29 mg/dL (2-96); IMMUNOGLOBULIN G, QNT 605 mg/dL (603-1613)
[2021-08-02] VITALS (91 sets, daily range): BP systolic 70–169; BP diastolic 23–75
[2021-08-02 06:01] LABS: BUN 15 mg/dl (7-24); CHLORIDE 100 mmol/L (98-107); CREATININE 0.76 mg/dL (0.70-1.30); POTASSIUM 3.8 mmol/L (3.5-5.1); SODIUM 141 mmol/L (136-145)
[2021-08-02 06:04] LABS: RED BLOOD COUNT 3.89 10*6/uL (4.50-5.90)
[2021-08-02 06:47] LABS: BASO # 0.1 10*3/uL (0.0-0.1); BASO % 0.9 % (0.0-1.0); EOS # 0.5 10*3/uL (0.0-0.4); EOS % 3.6 % (1.0-4.0); HEMATOCRIT 38.1 % (42.0-52.0); LYMPH # 1.5 10*3/uL (1.3-4.4); LYMPH % 10.3 % (27.0-41.0); MEAN CELL VOLUME 97.9 fl (80.0-94.0); MEAN CORPUSCULAR HGB 31.1 pg (27.0-31.0); MEAN CORPUSCULAR HGB CONC 31.8 g/dl (33.0-37.0); MEAN PLATELET VOLUME 11.3 fl (9.6-12.3); MONO # 1.1 10*3/uL (0.1-1.0); NEUT # 9.8 10*3/uL (2.3-7.9); PLATELET COUNT AUTOMATED 267 10*3/uL (130-400); RED CELL DISTRI WIDTH 13.2 % (0-14.5); WHITE BLOOD COUNT 14.1 10*3/uL (4.8-10.8)
[2021-08-02 07:35] LABS: ATYPICAL LYMPHS 1 % (0-0); PLATELET SUFFICIENCY NORMAL (NORMAL); TOTAL CELLS COUNTED 100 #CELLS
[2021-08-03] VITALS (66 sets, daily range): BP systolic 80–163; BP diastolic 5–75
[2021-08-03 05:26] LABS: BUN 13 mg/dl (7-24); CHLORIDE 100 mmol/L (98-107); POTASSIUM 3.8 mmol/L (3.5-5.1); SODIUM 139 mmol/L (136-145)
[2021-08-03 06:18] LABS: HEMATOCRIT 39.1 % (42.0-52.0); MEAN CORPUSCULAR HGB 30.6 pg (27.0-31.0); MEAN CORPUSCULAR HGB CONC 30.9 g/dl (33.0-37.0); MEAN PLATELET VOLUME 10.8 fl (9.6-12.3); PLATELET COUNT AUTOMATED 287 10*3/uL (130-400); RED BLOOD COUNT 3.95 10*6/uL (4.50-5.90); RED CELL DISTRI WIDTH 13.1 % (0-14.5); WHITE BLOOD COUNT 15.5 10*3/uL (4.8-10.8)
[2021-08-03 07:26] LABS: PLATELET SUFFICIENCY NORMAL (NORMAL); TOTAL CELLS COUNTED 100 #CELLS; TOXIC GRANULATION SLIGHT
[2021-08-04] VITALS (11 sets, daily range): BP systolic 83–148; BP diastolic 47–68
[2021-08-04 05:31] LABS: BUN 14 mg/dl (7-24); CHLORIDE 98 mmol/L (98-107); CREATININE 0.81 mg/dL (0.70-1.30); POTASSIUM 4.3 mmol/L (3.5-5.1); SODIUM 136 mmol/L (136-145)
[2021-08-04 06:10] LABS: HEMATOCRIT 37.4 % (42.0-52.0); MEAN CELL VOLUME 97.4 fl (80.0-94.0); MEAN CORPUSCULAR HGB 31.3 pg (27.0-31.0); MEAN CORPUSCULAR HGB CONC 32.1 g/dl (33.0-37.0); MEAN PLATELET VOLUME 10.9 fl (9.6-12.3); PLATELET COUNT AUTOMATED 281 10*3/uL (130-400); RED BLOOD COUNT 3.84 10*6/uL (4.50-5.90); WHITE BLOOD COUNT 12.8 10*3/uL (4.8-10.8)
[2021-08-04 07:03] LABS: PLATELET SUFFICIENCY NORMAL (NORMAL); TOTAL CELLS COUNTED 100 #CELLS
[2021-08-05] VITALS (58 sets, daily range): BP systolic 67–138; BP diastolic 39–72
[2021-08-05 05:55] LABS: ALBUMIN 1.9 gm/dl (3.1-4.5); ALKALINE PHOSPHATASE 89 U/L (45-117); BUN 17 mg/dl (7-24); CHLORIDE 103 mmol/L (98-107); CREATININE 0.75 mg/dL (0.70-1.30); POTASSIUM 4.2 mmol/L (3.5-5.1); SGOT/AST 36 IU/L (3-35); SGPT/ALT 68 U/L (12-78); SODIUM 141 mmol/L (136-145)
[2021-08-05 06:23] LABS: HEMATOCRIT 35.9 % (42.0-52.0); MEAN CORPUSCULAR HGB 31.1 pg (27.0-31.0); MEAN PLATELET VOLUME 10.2 fl (9.6-12.3); PLATELET COUNT AUTOMATED 323 10*3/uL (130-400); RED CELL DISTRI WIDTH 13.1 % (0-14.5); WHITE BLOOD COUNT 12.4 10*3/uL (4.8-10.8)
[2021-08-05 07:29] LABS: BASOPHILS 1 % (0-1); PLATELET SUFFICIENCY NORMAL (NORMAL); TOTAL CELLS COUNTED 100 #CELLS; TOXIC GRANULATION SLIGHT
[2021-08-06] VITALS (96 sets, daily range): BP systolic 84–147; BP diastolic 48–75
[2021-08-06 05:58] LABS: BUN 13 mg/dl (7-24); CHLORIDE 104 mmol/L (98-107); CREATININE 0.87 mg/dL (0.70-1.30); SODIUM 142 mmol/L (136-145)
[2021-08-06 07:37] LABS: HEMATOCRIT 37.2 % (42.0-52.0); MEAN CELL VOLUME 97.6 fl (80.0-94.0); MEAN CORPUSCULAR HGB 30.4 pg (27.0-31.0); MEAN CORPUSCULAR HGB CONC 31.2 g/dl (33.0-37.0); MEAN PLATELET VOLUME 10.3 fl (9.6-12.3); RED BLOOD COUNT 3.81 10*6/uL (4.50-5.90); RED CELL DISTRI WIDTH 13.4 % (0-14.5); WHITE BLOOD COUNT 16.1 10*3/uL (4.8-10.8)
[2021-08-06 07:41] LABS: PLATELET COUNT AUTOMATED 450 10*3/uL (130-400)
[2021-08-06 07:47] LABS: BASOPHILS 2 % (0-1); PLATELET SUFFICIENCY HIGH (NORMAL); TOTAL CELLS COUNTED 100 #CELLS
[2021-08-07] VITALS (61 sets, daily range): BP systolic 80–163; BP diastolic 36–73
[2021-08-07 06:12] LABS: CHLORIDE 101 mmol/L (98-107); POTASSIUM 3.9 mmol/L (3.5-5.1); SODIUM 140 mmol/L (136-145)
[2021-08-07 06:18] LABS: HEMATOCRIT 36.8 % (42.0-52.0); MEAN CELL VOLUME 98.4 fl (80.0-94.0); MEAN CORPUSCULAR HGB 30.2 pg (27.0-31.0); MEAN CORPUSCULAR HGB CONC 30.7 g/dl (33.0-37.0); PLATELET COUNT AUTOMATED 470 10*3/uL (130-400); RED BLOOD COUNT 3.74 10*6/uL (4.50-5.90); RED CELL DISTRI WIDTH 13.3 % (0-14.5)
[2021-08-07 06:33] LABS: BUN 15 mg/dl (7-24); CREATININE 0.81 mg/dL (0.70-1.30)
[2021-08-07 07:34] LABS: PLATELET SUFFICIENCY HIGH (NORMAL); POLYCHROMASIA SLIGHT; TOTAL CELLS COUNTED 100 #CELLS
== END 2021-08-07 15:19 | disposition hospice, inpatient (51) | DRG 870 ==
LOC: ED 17:38 → EDHOLD 20:37 → ICCU 20:37
PROVIDERS: Hospitalist; Internal Medicine; Internal Medicine Critical Care Medicine; Nurse Practitioner Family; Social Worker Clinical; Student in an Organized Health Care Education/Training Program; ADMIT Family Medicine; ATTEND Family Medicine
PROC: 5A09357 Assistance with Respiratory Ventilation, Less than 24 Consecutive Hours, Continuous Positive Airway Pressure (ICD-10-PCS; 2021-07-26)
PROC: 02HV33Z Insertion of Infusion Device into Superior Vena Cava, Percutaneous Approach (ICD-10-PCS; principal; 2021-07-27)
PROC: B548ZZA Ultrasonography of Superior Vena Cava, Guidance (ICD-10-PCS; 2021-07-27)
PROC: 0BH18EZ Insertion of Endotracheal Airway into Trachea, Via Natural or Artificial Opening Endoscopic (ICD-10-PCS; 2021-07-27)
PROC: XW033E5 Introduction of Remdesivir Anti-infective into Peripheral Vein, Percutaneous Approach, New Technology Group 5 (ICD-10-PCS; 2021-07-27)
PROC: 5A1955Z Respiratory Ventilation, Greater than 96 Consecutive Hours (ICD-10-PCS; 2021-07-27)
PROC: 0BC98ZZ Extirpation of Matter from Lingula Bronchus, Via Natural or Artificial Opening Endoscopic (ICD-10-PCS; 2021-07-31)
PROC: 0BC48ZZ Extirpation of Matter from Right Upper Lobe Bronchus, Via Natural or Artificial Opening Endoscopic (ICD-10-PCS; 2021-07-31)
PROC: 0BC88ZZ Extirpation of Matter from Left Upper Lobe Bronchus, Via Natural or Artificial Opening Endoscopic (ICD-10-PCS; 2021-07-31)
PROC: 0BC58ZZ Extirpation of Matter from Right Middle Lobe Bronchus, Via Natural or Artificial Opening Endoscopic (ICD-10-PCS; 2021-07-31)
PROC: 0BC38ZZ Extirpation of Matter from Right Main Bronchus, Via Natural or Artificial Opening Endoscopic (ICD-10-PCS; 2021-07-31)
PROC: 0BC78ZZ Extirpation of Matter from Left Main Bronchus, Via Natural or Artificial Opening Endoscopic (ICD-10-PCS; 2021-07-31)
PROC: 0BC68ZZ Extirpation of Matter from Right Lower Lobe Bronchus, Via Natural or Artificial Opening Endoscopic (ICD-10-PCS; 2021-07-31)
PROC: 0BCB8ZZ Extirpation of Matter from Left Lower Lobe Bronchus, Via Natural or Artificial Opening Endoscopic (ICD-10-PCS; 2021-07-31)
PROC: 0BC18ZZ Extirpation of Matter from Trachea, Via Natural or Artificial Opening Endoscopic (ICD-10-PCS; 2021-07-31)
PROC: 0B9G7ZX Drainage of Left Upper Lung Lobe, Via Natural or Artificial Opening, Diagnostic (ICD-10-PCS; 2021-07-31)
DX: A41.9 Sepsis, unspecified organism (principal); N17.0 Acute kidney failure with tubular necrosis; G93.41 Metabolic encephalopathy; J18.9 Pneumonia, unspecified organism; J96.02 Acute respiratory failure with hypercapnia; J96.11 Chronic respiratory failure with hypoxia; E46 Unspecified protein-calorie malnutrition; E87.0 Hyperosmolality and hypernatremia; T17.590A Other foreign object in bronchus causing asphyxiation, initial encounter; Z68.1 Body mass index [BMI] 19.9 or less, adult; R65.20 Severe sepsis without septic shock; E05.90 Thyrotoxicosis, unspecified without thyrotoxic crisis or storm; J43.9 Emphysema, unspecified; Z66 Do not resuscitate; Z20.822 Contact with and (suspected) exposure to COVID-19; E11.40 Type 2 diabetes mellitus with diabetic neuropathy, unspecified; I95.9 Hypotension, unspecified; J98.4 Other disorders of lung; E53.8 Deficiency of other specified B group vitamins; E11.65 Type 2 diabetes mellitus with hyperglycemia; X58.XXXA Exposure to other specified factors, initial encounter; E78.00 Pure hypercholesterolemia, unspecified; R91.8 Other nonspecific abnormal finding of lung field; I10 Essential (primary) hypertension; Z99.81 Dependence on supplemental oxygen; Z79.4 Long term (current) use of insulin; Z51.5 Encounter for palliative care; Z88.8 Allergy status to other drugs, medicaments and biological substances; Z82.5 Family history of asthma and other chronic lower respiratory diseases; Y93.89 Activity, other specified; Y92.89 Other specified places as the place of occurrence of the external cause; Y99.8 Other external cause status; Z79.51 Long term (current) use of inhaled steroids; Z79.82 Long term (current) use of aspirin; Z79.899 Other long term (current) drug therapy

== ENCOUNTER 2021-08-07 15:28 | Inpatient (IN) | payer OTHER, MEDICARE, MEDICAID ==
[~2021-08-07] VITALS: Ht 175.3 cm; Wt 59.0 kg
[~2021-08-07 15:28] MED LIST changes: +DALI500T PO; +FLONASE ALLERG9.9 ML NAS; +INCRUSE ELLI62.5 MCG INH; +JARDIANCE10 MG PO; +PROPRANOLOL HCL20 MG PO; +ROPINIROLE HYD0.5 MG PO
[2021-08-07 15:30] VITALS: BP 105/56
[2021-08-07 17:00] VITALS: BP 113/62
[2021-08-07 20:00] VITALS: BP 116/58
[2021-08-08 07:59] VITALS: BP 141/68
[2021-08-08 12:00] VITALS: BP 128/65
[2021-08-08 20:00] VITALS: BP 117/62
[2021-08-09] VITALS: BP 137/67
[2021-08-09 08:00] VITALS: BP 105/63
[2021-08-09 12:00] VITALS: BP 129/69
[2021-08-09 16:00] VITALS: BP 118/69
[2021-08-09 20:00] VITALS: BP 130/78
[2021-08-10] VITALS: BP 135/72
[2021-08-10 08:00] VITALS: BP 134/75
[2021-08-10 12:00] VITALS: BP 112/62
[2021-08-10 16:00] VITALS: BP 134/78
[2021-08-10 20:00] VITALS: BP 116/57
[2021-08-11] VITALS: BP 153/77
[2021-08-11 08:00] VITALS: BP 116/57; BP 120/64
[2021-08-11 12:00] VITALS: BP 113/71
[2021-08-11 16:00] VITALS: BP 96/62
[2021-08-11 20:00] VITALS: BP 102/54
[2021-08-12 08:00] VITALS: BP 112/72
[2021-08-12 12:00] VITALS: BP 110/60; BP 135/64
[2021-08-12 16:00] VITALS: BP 125/81
[2021-08-12 20:00] VITALS: BP 111/65
[2021-08-13 08:00] VITALS: BP 132/77
[2021-08-13 12:00] VITALS: BP 121/67
[2021-08-13 16:00] VITALS: BP 106/58
== END 2021-08-13 20:05 | DRG 871 ==
LOC: 4E 15:28 → ICCU 15:28 → 4E 08-08 08:09
PROVIDERS: ADMIT Family Medicine; ATTEND Family Medicine
DX: A41.9 Sepsis, unspecified organism (principal); G93.41 Metabolic encephalopathy; N17.0 Acute kidney failure with tubular necrosis; J96.21 Acute and chronic respiratory failure with hypoxia; R65.21 Severe sepsis with septic shock; E43 Unspecified severe protein-calorie malnutrition; J96.22 Acute and chronic respiratory failure with hypercapnia; E87.0 Hyperosmolality and hypernatremia; Z68.1 Body mass index [BMI] 19.9 or less, adult; Z51.5 Encounter for palliative care; Z66 Do not resuscitate; J98.4 Other disorders of lung; E11.65 Type 2 diabetes mellitus with hyperglycemia; E11.42 Type 2 diabetes mellitus with diabetic polyneuropathy; J43.9 Emphysema, unspecified; E78.00 Pure hypercholesterolemia, unspecified; E53.8 Deficiency of other specified B group vitamins; Z79.4 Long term (current) use of insulin; Z99.81 Dependence on supplemental oxygen